=== PATIENT | male | born 1955 | race Caucasian/White ===

== ENCOUNTER 2020-10-21 10:04 | Outpatient (CLI) | payer OTHER, SELFPAY ==
--- NOTE | 2020-10-21 12:00 | NEURO_ITS ---
Impression: # Complains of decreasing strength in hands. # No Carpal Tunnel Syndrome. # Left ulnar neuropathy around the elbow. # Normal needle/EMG exam without evidence of fibs or myotonia. # Clinical correlation recommended. Nerve Conduction Studies Anti Sensory Summary Table Stim Site NR Peak (ms) P-T Amp (?V) Site1 Site2 Delta-P (ms) Dist (cm) Harinder (m/s) Left Median Anti Sensory (2-3nd Digit) Wrist 3.6 24.4 Wrist 2-3nd Digit 3.6 14.0 39 Wrist 3.6 10.3 Wrist 2-3nd Digit 3.6 14.0 39 Right Median Anti Sensory (2-3nd Digit) Wrist 3.8 31.0 Wrist 2-3nd Digit 3.8 14.0 37 Wrist 4.1 42.9 Wrist 2-3nd Digit 3.8 14.0 37 Left Radial Anti Sensory (Base 1st Digit) Wrist 2.6 13.7 Wrist Base 1st Digit 2.6 0.0 Right Radial Anti Sensory (Base 1st Digit) Wrist 3.1 18.8 Wrist Base 1st Digit 3.1 0.0 Left Ulnar Anti Sensory (5th Digit) Wrist 2.9 10.6 Wrist 5th Digit 2.9 14.0 48 Right Ulnar Anti Sensory (5th Digit) Wrist 2.7 29.1 Wrist 5th Digit 2.7 14.0 52 Motor Summary Table Stim Site NR Onset (ms) O-P Amp (mV) Site1 Site2 Delta-0 (ms) Dist (cm) Harinder (m/s) Left Median Motor (Abd Poll Brev) Wrist 3.3 6.9 Elbow Wrist 5.8 32.0 55 Elbow 9.1 6.5 Right Median Motor (Abd Poll Brev) Wrist 3.6 2.4 Elbow Wrist 5.7 32.0 56 Elbow 9.3 3.2 Left Ulnar Motor (Abd Dig Minimi) Wrist 3.0 3.4 A Elbow Wrist 7.0 32.0 46 A Elbow 10.0 2.8 B Elbow Wrist 4.7 26.0 55 B Elbow 7.7 3.1 Right Ulnar Motor (Abd Dig Minimi) Wrist 2.6 1.9 A Elbow Wrist 5.8 32.0 55 A Elbow 8.4 1.0 F Wave Studies NR F-Lat (ms) L-R F-Lat (ms) Left Median (Mrkrs) (Abd Poll Brev) 32.73 0.85 Right Median (Mrkrs) (Abd Poll Brev) 31.88 0.85 Left Ulnar (Mrkrs) (Abd Dig Min) 31.44 1.15 Right Ulnar (Mrkrs) (Abd Dig Min) 32.58 1.15 EMG Side Muscle Nerve Root Ins Act Fibs Amp Dur Recrt Comment Right 1stDorInt Ulnar C8-T1 Nml Nml Nml Nml Nml Right Ext Indicis Radial (Post Int) C7-8 Nml Nml Nml Nml Nml Right Ext Digitorum Radial (Post Int) C7-8 Nml Nml Nml Nml Nml Right BrachioRad Radial C5-6 Nml Nml Nml Nml Nml Right PronatorTeres Median C6-7 Nml Nml Nml Nml Nml Right Abd Poll Brev Median C8-T1 Nml Nml Nml Nml Nml Left 1stDorInt Ulnar C8-T1 Nml Nml Nml Nml Nml Left Ext Indicis Radial (Post Int) C7-8 Nml Nml Nml Nml Nml Left Ext Digitorum Radial (Post Int) C7-8 Nml Nml Nml Nml Nml Left BrachioRad Radial C5-6 Nml Nml Nml Nml Nml Left PronatorTeres Median C6-7 Nml Nml Nml Nml Nml Left Abd Poll Brev Median C8-T1 Nml Nml Nml Nml Nml MTDD
== END 2020-10-21 10:05 | disposition home or self-care (01) ==
LOC: ANHNEURO 10:07
PROVIDERS: PCP Physician Assistant; Visit Provider Psychiatry & Neurology Neurology
DX: G56.22 Lesion of ulnar nerve, left upper limb (principal)
CPT/HCPCS: 95886; 95911

== ENCOUNTER 2021-03-09 14:38 | Outpatient (CLI) | payer OTHER, SELFPAY ==
--- NOTE | ~2021-03-09 | MR_ITS ---
EXAMINATION: MR cervical spine wo con DATE: 03/09/2021 16:11 INDICATION: Disease of spinal cord, unspecified. TECHNIQUE: Magnetic resonance imaging (MRI) of the cervical spine was performed without intravenous c ontrast. Sequences included sagittal T2-weighted FSE, sagittal T2-weighted FS FSE, sagittal T1-weight ed FSE, axial MERGE, and axial T2-weighted FSE. COMPARISON: None FINDINGS: Bone alignment is normal. There are changes of anterior fusion procedure from C4-C5 through C6-C7. There are interbody devices at C4-C5 and C5-C6. There is mild chronic anterior wedging of T1 and T2 vertebral bodies. There is mildly decreased disc height at C3-C4 and severely decreased disc h eight at C7-T1 with endplate remodeling. The spinal cord signal intensity is normal. The following di sc levels are specifically discussed: C2-C3: The disc does not extend beyond the endplate margin. There is no uncovertebral joint osteoarth ritis. There is moderate bilateral facet joint osteoarthritis. There is no neural foraminal stenosis. There is no central canal stenosis. C3-C4: The disc is bulging. There is moderate right and severe left uncovertebral joint osteoarthriti s. There is severe bilateral facet joint osteoarthritis. There is mild right and moderate left neural foraminal stenosis. There is mild central canal stenosis. C4-C5: There is mild right uncovertebral joint hypertrophy. There is no facet joint osteoarthritis. T here is mild right neural foraminal stenosis. There is no central canal stenosis. C5-C6: There is moderate right and mild left uncovertebral joint hypertrophy. There is no facet joint osteoarthritis. There is mild bilateral neural foraminal stenosis. There is no central canal stenosi s. C6-C7: There is no uncovertebral joint osteoarthritis. There is mild bilateral facet joint hypertroph y. There is mild bilateral neural foraminal stenosis. There is no central canal stenosis. C7-T1: The disc is bulging. There is severe bilateral uncovertebral joint osteoarthritis. There is mi ld bilateral facet joint osteoarthritis. There is mild bilateral neural foraminal stenosis. There is mild central canal stenosis. IMPRESSION: 1. Severe cervical spondylosis. 2. Anterior fusion procedure from C4 to C7. Reviewed, dictated and finalized at location A. [employer]
== END 2021-03-09 14:39 | disposition home or self-care (01) ==
LOC: ANHIMG 14:45
PROVIDERS: Visit Provider Psychiatry & Neurology Neurology
DX: G95.9 Disease of spinal cord, unspecified (principal); M47.813 Spondylosis without myelopathy or radiculopathy, cervicothoracic region; M48.03 Spinal stenosis, cervicothoracic region; Z98.1 Arthrodesis status
CPT/HCPCS: 72141